=== PATIENT | male | born 1945 | race Caucasian/White ===

== ENCOUNTER 2017-10-01 13:12 | Emergency (ER) | payer OTHER, MEDICARE, BC ==
--- NOTE | 2017-10-01 14:43 | EDM.PDOC ---
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 He had it repaired in [place] and he has been doing well until he got it wet last night while showering. Now it is bleeding a little and he needs it examined and rebandaged. It feels good and he has had no fever or chills. No other complaints. Onset Date: 09/27/17 Onset Time: 13:00 Duration: Day(s): (4 days. 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.) - Related Data Allergies Allergy/AdvReac Type Severity Reaction Status Date / Time codeine Allergy Difficulty Verified 06/08/13 17:08 Breathing Home Meds: Home Meds Aspirin [Halfprin] 81 mg PO DAILY 06/08/13 [History] Lisinopril/Hydrochlorothiazide [Lisinopril-Hctz 10-12.5 mg Tab] 1 each PO DAILY 06/08/13 [History] Metoprolol Tartrate [Lopressor] 50 mg PO DAILY 06/08/13 [History] Simvastatin [Simvastatin] 20 mg PO DAILY 06/08/13 [History] Social & Family History - Tobacco Use Years of Tobacco use: 5 Used Tobacco, but Quit: Yes Month Tobacco Last Used: 1968 Second Hand Smoke Exposure: No ED ROS GENERAL - Review of Systems Review Of Systems: ROS reveals no pertinent complaints other than HPI. ED EXAM, GENERAL - Physical Exam Exam: See Below Exam Limited By: No Limitations General Appearance: Alert Eye Exam: Bilateral Eye: EOMI, Normal Fundi, Normal Inspection Ears: Normal External Exam, Normal Canal, Hearing Grossly Normal, Normal TMs Ear Exam: Bilateral Ear: Auricle Normal, Canal Normal, TM normal Nose: Normal Inspection, Normal Mucosa, No Blood Throat/Mouth: Normal Inspection, Normal Lips, Normal Teeth, Normal Gums, Normal Oropharynx, Normal Voice, No Airway Compromise Head: Atraumatic, Normocephalic Neck: Normal Inspection Respiratory/Chest: No Respiratory Distress, Lungs Clear, Normal Breath Sounds, No Accessory Muscle Use, Chest Non-Tender Cardiovascular: Normal Peripheral Pulses, Regular Rate, Rhythm, No Edema, No Gallop, No JVD, No Murmur, No Rub Extremities: Other (Wound on amputation site of left middle finger is clean and healing well with no warmth or erythema.) Neurological: Alert, Oriented, CN II-XII Intact, Normal Cognition, Normal Gait, Normal Reflexes, No Motor/Sensory Deficits Course - Vital Signs Text/Narrative:: Uneventful ED course. His labs were normal. His finger was redressed and he did well. He will follow up with Dr. Rios and Dr. Tellez as scheduled. - Orders/Labs/Meds Labs: Laboratory Tests 10/01/17 10/01/17 Range/Units 13:45 13:45 WBC 10.2 (4.0-11.0) K/uL RBC 5.00 (4.50-6.50) M/uL Hgb 15.0 (13.0-18.0) g/dL Hct 43.2 (40.0-54.0) % MCV 86 (76-96) fL MCH 30.0 (27.0-32.0) pg MCHC 34.7 (31.0-35.0) g/dL RDW 12.8 (11.0-16.0) % Plt Count 190 (150-400) K/uL MPV 8.9 (6.0-10.0) fL Neut % (Auto) 67.6 (45.0-70.0) % Lymph % (Auto) 21.3 (20.0-40.0) % [place] % (Auto) 8.1 (3.0-10.0) % Eos % (Auto) 2.7 (1.0-5.0) % Baso % (Auto) 0.3 (0.0-0.5) % Neut # (Auto) 6.91 (2.00-7.50) K/uL Lymph # (Auto) 2.18 (1.50-4.00) K/uL [place] # (Auto) 0.83 H (0.20-0.80) K/uL Eos # (Auto) 0.28 (0.04-0.40) K/uL Baso # (Auto) 0.03 (0.02-0.10) K/uL Sodium 139 (136-145) mmol/L Potassium 4.4 (3.5-5.1) mmol/L Chloride 102 (98-107) mmol/L Carbon Dioxide 26.7 (21.0-32.0) mmol/L Anion Gap 14.7 (5.0-15.0) mmol/L BUN 11 (8-26) mg/dL Creatinine 1.18 (0.70-1.30) mg/dL Est Cr Clr Drug Dosing TNP Estimated GFR (MDRD) > 60 (>60) MLS/MIN BUN/Creatinine Ratio 9.3 (6-25) Glucose 97 (74-100) mg/dL Calcium 9.2 (8.5-10.1) mg/dL Total Bilirubin 0.4 D (0.0-1.0) mg/dL AST 22 (15-37) U/L ALT 35 (12-78) U/L Alkaline Phosphatase 128 H (46-116) U/L Total Protein 7.3 (6.4-8.2) g/dL Albumin 4.0 (3.4-5.0) g/dL Globulin 3.3 (2.2-4.2) g/dL Albumin/Globulin Ratio 1.2 (0.8-2.0) Departure - Departure Time of Disposition: 14:44 Disposition: Home, Self-Care 01 Condition: Good Clinical Impression: Visit for wound check - Discharge Information Referrals: PCP,None [Primary Care Provider] -
[2017-10-01 15:03] VITALS: BP 147/82
== END 2017-10-01 14:47 | disposition home or self-care (01) ==
LOC: LB.ED 13:12
DX: S68.113A Complete traumatic metacarpophalangeal amputation of left middle finger, initial encounter (principal); Z87.891 Personal history of nicotine dependence; Z79.82 Long term (current) use of aspirin; Z79.899 Other long term (current) drug therapy; Z88.5 Allergy status to narcotic agent; X58.XXXA Exposure to other specified factors, initial encounter
CPT/HCPCS: 36415; 80053; 85025; 99282; 99284

== ENCOUNTER 2021-02-12 11:59 | Emergency (ER) | payer MEDICARE ==
[2021-02-12] MEDS: Sodium Chloride 0.9% 1,000 ML IV ONE (12:20)
[2021-02-12] MEDS: Acetaminophen 325 MG Tab PO STA (13:00)
[2021-02-12] MEDS: Acetaminophen 325 MG Tab PO ONE (13:04)
[2021-02-12 13:12] VITALS: BP 155/66; PULSE 83
[2021-02-12] MEDS: Sodium Chloride 0.9% 1,000 ML IV SCH (13:20)
--- NOTE | 2021-02-12 14:03 | CR ---
DATE OF SERVICE: 02/12/21 CLINICAL DATA: COUGH,FEVER Portable chest: No priors. Heart size is normal. There is calcification of the aortic arch. There are poorly defined infiltrates in the left mid lung and in the right upper mid lung suspicious for pneumonia. The lungs are otherwise clear. No pneumothorax. No pleural effusions. MTDD
[2021-02-12] MEDS: cefTRIAXone 1 GM Vial ONE (14:34)
[2021-02-12] MEDS: cefTRIAXone 1 GM in Sodium Chloride 0.9% 50 ML IV ONE (14:41)
[2021-02-12] MEDS ORDERED: Sodium Chloride 0.9% 10 ML Syringe FLUSH PRN (15:09)
[2021-02-12] MEDS: Doxycycline 100 MG in Sodium Chloride 0.9% 100 ML IV ONE (15:10)
--- NOTE | 2021-02-12 15:11 | EDM.PDOC ---
ED HPI GENERAL MEDICAL PROBLEM - General Stated Complaint: COVID COMPLICATIONS Time Seen by Provider: 02/12/21 12:30 Source of Information: Reports: Patient, RN History Limitations: Reports: No Limitations - History of Present Illness INITIAL COMMENTS - FREE TEXT/NARRATIVE: 75 year old male with PMH HTN and hyperlipidemia presents to ED after positive covid test. He states he hasn't "felt well" for 3 weeks. He dose have a cough, but that is baseline. +fever. Denies any SOB, CP, n/v/d. - Related Data Allergies Allergy/AdvReac Type Severity Reaction Status Date / Time codeine Allergy Difficulty Verified 06/08/13 17:08 Breathing Home Meds: Home Meds Aspirin [Halfprin] 81 mg PO DAILY 06/08/13 [History] Lisinopril/Hydrochlorothiazide [Lisinopril-Hctz 10-12.5 mg Tab] 1 each PO DAILY 06/08/13 [History] Metoprolol Tartrate [Lopressor] 50 mg PO DAILY 06/08/13 [History] Simvastatin 20 mg PO DAILY 06/08/13 [History] Amoxicillin/Potassium Clav [Augmentin 875-125 Tablet] 1 each PO BID 7 Days #14 tablet 02/12/21 [Rx] Bacillus Coagulans [Probiotic] 1 each PO DAILY #30 capsule. 02/12/21 [Rx] Doxycycline [Vibra-Tabs] 100 mg PO Q12HR 7 Days #14 tab 02/12/21 [Rx] ED ROS GENERAL - Review of Systems Review Of Systems: See Below Constitutional: Reports: Fever, Fatigue HEENT: Reports: No Symptoms Respiratory: Reports: Cough Cardiovascular: Reports: No Symptoms Endocrine: Reports: No Symptoms GI/Abdominal: Reports: No Symptoms : Reports: No Symptoms Musculoskeletal: Reports: No Symptoms Skin: Reports: No Symptoms Neurological: Reports: No Symptoms Psychiatric: Reports: No Symptoms ED EXAM, GENERAL - Physical Exam Exam: See Below Exam Limited By: No Limitations General Appearance: Alert Eye Exam: Bilateral Eye: PERRL Ears: Normal External Exam, Normal Canal, Hearing Grossly Normal, Normal TMs Ear Exam: Bilateral Ear: Auricle Normal, Canal Normal, TM normal Nose: Normal Inspection, Normal Mucosa, No Blood Throat/Mouth: Normal Inspection, Normal Lips, Normal Teeth, Normal Gums, Normal Oropharynx, Normal Voice, No Airway Compromise Head: Atraumatic Neck: Normal Inspection, Non-Tender, Full Range of Motion Respiratory/Chest: No Respiratory Distress, Lungs Clear, Normal Breath Sounds Cardiovascular: Normal Peripheral Pulses, Regular Rate, Rhythm, No Edema, No JVD, No Murmur GI/Abdominal: Normal Bowel Sounds, Soft, Non-Tender Back Exam: Normal Inspection, Full Range of Motion Extremities: Normal Inspection, Normal Range of Motion, Non-Tender, No Pedal Edema, Normal Capillary Refill Neurological: Alert, Oriented, Normal Cognition, Normal Gait, No Motor/Sensory Deficits Psychiatric: Normal Affect, Normal Mood Skin Exam: Warm, Dry, Intact, Normal Color, No Rash Course - Vital Signs Last Recorded V/S: Last Vital Signs Temp 100.4 F 02/12/21 12:10 Pulse 83 02/12/21 12:10 Resp 16 02/12/21 12:10 BP 155/66 H 02/12/21 12:10 Pulse Ox 99 02/12/21 12:10 - Orders/Labs/Meds Labs: Laboratory Tests 02/12/21 02/12/21 02/12/21 Range/Units 13:10 13:30 13:30 WBC 4.6 D (4.0-11.0) K/uL RBC 4.53 (4.50-6.50) M/uL Hgb 13.7 (13.0-18.0) g/dL Hct 39.3 L (40.0-54.0) % MCV 87 (76-96) fL MCH 30.2 (27.0-32.0) pg MCHC 34.9 (31.0-35.0) g/dL RDW 12.7 (11.0-16.0) % Plt Count 146 L D (150-400) K/uL MPV 8.5 (6.0-10.0) fL Neut % (Auto) 67.3 (45.0-70.0) % Lymph % (Auto) 19.0 L (20.0-40.0) % [place] % (Auto) 13.3 H (3.0-10.0) % Eos % (Auto) 0.2 L (1.0-5.0) % Baso % (Auto) 0.2 (0.0-0.5) % Neut # (Auto) 3.08 (2.00-7.50) K/uL Lymph # (Auto) 0.87 L (1.50-4.00) K/uL [place] # (Auto) 0.61 (0.20-0.80) K/uL Eos # (Auto) 0.01 L (0.04-0.40) K/uL Baso # (Auto) 0.01 L (0.02-0.10) K/uL Sodium 132 L (136-145) mmol/L Potassium 3.8 (3.5-5.1) mmol/L Chloride 99 (98-107) mmol/L Carbon Dioxide 29.7 (21.0-32.0) mmol/L Anion Gap 7.1 (5.0-15.0) mmol/L BUN 13 (8-26) mg/dL Creatinine 1.18 (0.70-1.30) mg/dL Est Cr Clr Drug Dosing 59.37 mL/min Estimated GFR (MDRD) > 60 (>60) MLS/MIN BUN/Creatinine Ratio 11.0 (6-25) Glucose 121 H (74-100) mg/dL Calcium 7.6 L (8.5-10.1) mg/dL Total Bilirubin 0.6 (0.0-1.0) mg/dL AST 28 (15-37) U/L ALT 34 (12-78) U/L Alkaline Phosphatase 75 (46-116) U/L Total Protein 6.2 L (6.4-8.2) g/dL Albumin 3.1 L (3.4-5.0) g/dL Globulin 3.1 (2.2-4.2) g/dL Albumin/Globulin Ratio 1.0 (0.8-2.0) Urine Color Yellow Urine Appearance Clear (CLEAR) Urine pH 6.0 (5.0-8.0) Ur Specific [place] 1.025 (1.003-1.030) Urine Protein Negative (NEGATIVE) mg/dL Urine Glucose (UA) Negative (NEGATIVE) mg/dL Urine Ketones Negative (NEGATIVE) mg/dL Urine Occult Blood Negative (NEGATIVE) Urine Nitrite Negative (NEGATIVE) Urine Bilirubin Negative (NEGATIVE) Urine Urobilinogen 0.2 (0.2-1.0) E.U./dL Ur Leukocyte Esterase Negative (NEGATIVE) Meds: Medications Discontinued Medications Generic Name Dose Route Start Last Admin Trade Name Freq PRN Reason Stop Dose Admin Acetaminophen 650 mg 02/12/21 12:46 02/12/21 13:04 Acetaminophen 325 Mg Tab PO 02/12/21 12:47 Not Given NOW ONE Acetaminophen 1,000 mg 02/12/21 12:57 02/12/21 13:00 Acetaminophen 325 Mg Tab PO 02/12/21 12:58 1,000 mg NOW STA Administration Ceftriaxone Sodium Confirm 02/12/21 14:34 02/12/21 14:34 Ceftriaxone 1 Gm Vial Administered 02/12/21 14:35 Not Given Dose 1 gm .ROUTE .STK-MED ONE Sodium Chloride 1,000 mls @ 1,000 mls/hr 02/12/21 12:46 02/12/21 12:20 Normal Saline IV 02/12/21 13:45 1,000 mls/hr .BOLUS ONE Administration Doxycycline Hyclate 100 mg/ 100 mls @ 100 mls/hr 02/12/21 14:06 02/12/21 15:10 Sodium Chloride IV 02/12/21 15:05 100 mls/hr ONETIME ONE Administration Ceftriaxone Sodium 1 gm/ 50 mls @ 200 mls/hr 02/12/21 14:06 02/12/21 14:41 Sodium Chloride IV 02/12/21 14:20 200 mls/hr ONETIME ONE Administration Sodium Chloride 1,000 mls @ 999 mls/hr 02/12/21 14:45 02/12/21 13:20 Normal Saline IV 999 mls/hr ASDIRECTED BRIA Administration Sodium Chloride 10 ml 02/12/21 15:09 Sodium Chloride 0.9% 10 Ml Syringe FLUSH ASDIRECTED PRN Keep Vein Open Departure - Departure Time of Disposition: 16:30 Disposition: Home, Self-Care 01 Condition: Good Clinical Impression: COVID-19 Pneumonia Qualifiers: Pneumonia type: due to unspecified organism Laterality: unspecified laterality Lung location: unspecified part of lung Qualified Code(s): J18.9 - Pneumonia, unspecified organism Fever Qualifiers: Fever type: unspecified Qualified Code(s): R50.9 - Fever, unspecified - Discharge Information *PRESCRIPTION DRUG MONITORING PROGRAM REVIEWED*: Not Applicable *COPY OF PRESCRIPTION DRUG MONITORING REPORT IN PATIENT GURDEEP: Not Applicable Prescriptions: Amoxicillin/Potassium Clav [Augmentin 875-125 Tablet] 1 each PO BID 7 Days #14 tablet Bacillus Coagulans [Probiotic] 1 each PO DAILY #30 capsule. Doxycycline [Vibra-Tabs] 100 mg PO Q12HR 7 Days #14 tab Instructions: COVID-19 Frequently Asked Questions, 10 Things You Can Do to Manage Your COVID-19 Symptoms at Home - CDC, Fever, Adult, [id number], Community-Acquired Pneumonia, Adult, [id number] Referrals: PCP,None [Primary Care Provider] - Forms: ED Department Discharge Additional Instructions: Start taking both antibiotics today (only one dose of both) and the probiotic. Drink plenty of fluids. Tylenol 650 mg and/or ibuprofen 600mg every 6 hours as needed for fever. Quarantine as advised by [place] [facility]. Return to ED for any increased or new concerning symptoms. Follow up with PMD as needed. Sepsis Event Note (ED) - Evaluation Sepsis Screening Result: No Definite Risk
== END 2021-02-12 16:30 | disposition home or self-care (01) ==
LOC: LB.ED 11:59
DX: U07.1 COVID-19 (principal); J12.82 Pneumonia due to coronavirus disease 2019; I10 Essential (primary) hypertension; E78.5 Hyperlipidemia, unspecified; Z79.82 Long term (current) use of aspirin; Z79.899 Other long term (current) drug therapy; Z88.5 Allergy status to narcotic agent
CPT/HCPCS: 36415; 71045; 80053; 81003; 85025; 96365; 96367; 99284; A9270; J0696; J3490; J7030

== ENCOUNTER 2021-02-15 10:25 | Emergency (ER) | payer MEDICARE ==
[~2021-02-15 10:25] MED LIST: REMDESIVIR 200 MG in Sodium Chloride 0.9% 250 ML IV SCH
[2021-02-15] MEDS ORDERED: Acetaminophen 325 MG Tab PO ONE (11:35)
[2021-02-15] MEDS ORDERED: Sodium Chloride 0.9% 10 ML Syringe FLUSH PRN (11:35)
[2021-02-15] MEDS ORDERED: Ondansetron 4 MG/2 ML SDV IVPUSH ONE (11:43)
[2021-02-15] MEDS ORDERED: Sodium Chloride 0.9% 1,000 ML IV SCH (11:45)
[2021-02-15] MEDS ORDERED: Ondansetron 4 MG/2 ML SDV ONE (11:45)
[2021-02-15] MEDS ORDERED: Dexamethasone 4 MG Tab PO ONE (11:57)
[2021-02-15] MEDS ORDERED: REMDESIVIR 200 MG in Sodium Chloride 0.9% 250 ML IV ONE (11:57)
[2021-02-15] MEDS ORDERED: Azithromycin 500 MG in Sodium Chloride 0.9% 250 ML IV ONE (12:57)
[2021-02-15] MEDS ORDERED: cefTRIAXone 2 GM in Sodium Chloride 0.9% 100 ML IV ONE (12:57)
--- NOTE | 2021-02-15 13:36 | EDM.PDOC ---
ED HPI GENERAL MEDICAL PROBLEM - General Chief Complaint: Respiratory Problem Stated Complaint: COVID/ PNEUMONIA Time Seen by Provider: 02/15/21 11:05 Source of Information: Reports: Patient History Limitations: Reports: No Limitations - History of Present Illness INITIAL COMMENTS - FREE TEXT/NARRATIVE: 75 year old male with PMH HTN, COVID +, presents to ER with increased lethargy, decreased appetite, increased nausea, and increased RR. EMS states that patient RA sats were 87-89, increased with 3L NC O2 to 95%. Patient denies SOB, CP, V/D, absominal pain, urinary issues. He does continue to have a fever and nausea. He has not eaten any thing since Monday night. Treatments [place]: Reports: Acetaminophen, NSAIDS - Related Data Allergies Allergy/AdvReac Type Severity Reaction Status Date / Time codeine Allergy Difficulty Verified 06/08/13 17:08 Breathing Home Meds: Home Meds Aspirin [Halfprin] 81 mg PO DAILY 06/08/13 [History] Lisinopril/Hydrochlorothiazide [Lisinopril-Hctz 10-12.5 mg Tab] 1 each PO DAILY 06/08/13 [History] Metoprolol Tartrate [Lopressor] 50 mg PO DAILY 06/08/13 [History] Simvastatin 20 mg PO DAILY 06/08/13 [History] Past Medical History HEENT History: Reports: Hard of Hearing Cardiovascular History: Reports: Hypertension Other Respiratory History: COVID 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 Pt states minimal Social & Family History - Tobacco Use Tobacco Use Status *Q: Never Tobacco User - Caffeine Use Caffeine Use: Reports: Coffee ED ROS GENERAL - Review of Systems Review Of Systems: See Below Constitutional: Reports: Fever, Chills, Weakness, Decreased Appetite HEENT: Reports: No Symptoms Respiratory: Reports: Cough Cardiovascular: Reports: No Symptoms GI/Abdominal: Reports: Nausea : Reports: No Symptoms Musculoskeletal: Reports: No Symptoms Skin: Reports: No Symptoms Neurological: Reports: Other (at baseline) Psychiatric: Reports: No Symptoms Hematologic/Lymphatic: Reports: No Symptoms Immunologic: Reports: No Symptoms ED EXAM, GENERAL - Physical Exam Exam: See Below Exam Limited By: No Limitations General Appearance: Alert, No Apparent Distress Eye Exam: Bilateral Eye: Normal Inspection, PERRL Ears: Normal External Exam, Hearing Grossly Normal Ear Exam: Bilateral Ear: Auricle Normal Nose: Normal Inspection, Normal Mucosa, No Blood Throat/Mouth: Normal Inspection, Normal Lips, Normal Teeth, Normal Gums, Normal Oropharynx, Normal Voice, No Airway Compromise Head: Atraumatic Neck: Normal Inspection, Non-Tender, Full Range of Motion Respiratory/Chest: No Respiratory Distress, No Accessory Muscle Use, Decreased Breath Sounds Cardiovascular: Normal Peripheral Pulses, No Edema, No JVD, No Murmur, Tachycardia Peripheral Pulses: 3+: Radial (L), Radial (R), Dorsalis Pedis (L), Dorsalis Pedis (R) GI/Abdominal: Normal Bowel Sounds, Soft, Non-Tender Back Exam: Normal Inspection, Full Range of Motion Extremities: Normal Inspection, Normal Range of Motion, Non-Tender, No Pedal Edema, Normal Capillary Refill Neurological: Alert, Oriented, Normal Cognition, No Motor/Sensory Deficits Psychiatric: Normal Affect, Normal Mood Skin Exam: Warm, Dry, Intact, Normal Color, No Rash Course - Vital Signs Last Recorded V/S: Last Vital Signs Temp 101.5 F H 02/15/21 11:53 Pulse 83 02/15/21 12:31 Resp 32 H 02/15/21 12:31 BP 111/61 02/15/21 13:55 Pulse Ox 93 L 02/15/21 13:55 - Orders/Labs/Meds Orders: Active Orders 24 hr Category Date Time Status Chest 1V Frontal [CR] Stat Exams 02/15/21 11:44 Taken Chest w Cont [CT] Stat Exams 02/15/21 13:41 Taken CULTURE BLOOD [BC] Stat Lab 02/15/21 11:30 Received Peripheral IV Insertion Adult [OM.PC] Routine Oth 02/15/21 11:35 Ordered Labs: Laboratory Tests 02/15/21 02/15/21 02/15/21 Range/Units 11:30 11:30 11:30 WBC 6.3 D (4.0-11.0) K/uL RBC 4.77 (4.50-6.50) M/uL Hgb 14.3 (13.0-18.0) g/dL Hct 40.4 (40.0-54.0) % MCV 85 (76-96) fL MCH 30.0 (27.0-32.0) pg MCHC 35.4 H (31.0-35.0) g/dL RDW 12.8 (11.0-16.0) % Plt Count 175 (150-400) K/uL MPV 8.8 (6.0-10.0) fL Neut % (Auto) 86.0 H (45.0-70.0) % Lymph % (Auto) 8.9 L (20.0-40.0) % [place] % (Auto) 4.9 (3.0-10.0) % Eos % (Auto) 0.0 L (1.0-5.0) % Baso % (Auto) 0.2 (0.0-0.5) % Neut # (Auto) 5.42 (2.00-7.50) K/uL Lymph # (Auto) 0.56 L (1.50-4.00) K/uL [place] # (Auto) 0.31 (0.20-0.80) K/uL Eos # (Auto) 0.00 L (0.04-0.40) K/uL Baso # (Auto) 0.01 L (0.02-0.10) K/uL D-Dimer, Quantitative 1360 H (0-400) ng/mL Sodium 132 L (136-145) mmol/L Potassium 3.8 (3.5-5.1) mmol/L Chloride 96 L (98-107) mmol/L Carbon Dioxide 24.8 (21.0-32.0) mmol/L Anion Gap 15.0 (5.0-15.0) mmol/L BUN 18 D (8-26) mg/dL Creatinine 1.17 (0.70-1.30) mg/dL Est Cr Clr Drug Dosing TNP Estimated GFR (MDRD) > 60 (>60) MLS/MIN BUN/Creatinine Ratio 15.4 (6-25) Glucose 118 H (74-100) mg/dL Calcium 7.8 L (8.5-10.1) mg/dL Total Bilirubin 0.8 D (0.0-1.0) mg/dL AST 60 H (15-37) U/L ALT 43 (12-78) U/L Alkaline Phosphatase 66 (46-116) U/L Total Protein 6.2 L (6.4-8.2) g/dL Albumin 2.6 L (3.4-5.0) g/dL Globulin 3.6 (2.2-4.2) g/dL Albumin/Globulin Ratio 0.7 L (0.8-2.0) Meds: Medications Discontinued Medications Generic Name Dose Route Start Last Admin Trade Name Freq PRN Reason Stop Dose Admin Acetaminophen 1,000 mg 02/15/21 11:35 02/15/21 11:45 Acetaminophen 325 Mg Tab PO 02/15/21 11:36 1,000 mg NOW ONE Administration Dexamethasone 6 mg 02/15/21 11:57 02/15/21 12:10 Dexamethasone 4 Mg Tab PO 02/15/21 11:58 6 mg ONETIME ONE Administration Sodium Chloride 1,000 mls @ 1,000 mls/hr 02/15/21 11:45 Normal Saline IV ASDIRECTED BRIA Remdesivir 200 mg/ Sodium 250 mls @ 250 mls/hr 02/15/21 11:57 Chloride IV 02/15/21 11:58 ONETIME ONE Remdesivir 200 mg/ Sodium 250 mls @ 250 mls/hr 02/15/21 08:00 02/15/21 12:27 Chloride IV 02/15/21 23:59 250 mls/hr DAILY BRIA Administration Azithromycin 500 mg/ Sodium 250 mls @ 250 mls/hr 02/15/21 12:57 02/15/21 13:00 Chloride IV 02/15/21 13:56 250 mls/hr ONETIME ONE Administration Ceftriaxone Sodium 2 gm/ 100 mls @ 100 mls/hr 02/15/21 12:57 02/15/21 13:00 Sodium Chloride IV 02/15/21 13:56 100 mls/hr ONETIME ONE Administration Ondansetron HCl 4 mg 02/15/21 11:43 02/15/21 11:45 Ondansetron 4 Mg/2 Ml Sdv IVPUSH 02/15/21 11:44 4 mg ONETIME ONE Administration Ondansetron HCl Confirm 02/15/21 11:45 Ondansetron 4 Mg/2 Ml Sdv Administered 02/15/21 11:46 Dose 4 mg .ROUTE .STK-MED ONE Sodium Chloride 10 ml 02/15/21 11:35 Sodium Chloride 0.9% 10 Ml Syringe FLUSH ASDIRECTED PRN Keep Vein Open Departure - Departure Time of Disposition: 14:51 Disposition: DC/[facility]fer to [facility] 02 Clinical Impression: COVID-19 Fever Qualifiers: Fever type: unspecified Qualified Code(s): R50.9 - Fever, unspecified Pneumonia Qualifiers: Pneumonia type: due to unspecified organism Laterality: unspecified laterality Lung location: unspecified part of lung Qualified Code(s): J18.9 - Pneumonia, unspecified organism - Discharge Information *PRESCRIPTION DRUG MONITORING PROGRAM REVIEWED*: Not Applicable *COPY OF PRESCRIPTION DRUG MONITORING REPORT IN PATIENT GURDEEP: Not Applicable Referrals: PCP,None [Primary Care Provider] - Forms: ED Department Discharge Sepsis Event Note (ED) - Evaluation Sepsis Screening Result: Possible Sepsis Risk - Focused Exam Vital Signs: Vital Signs Temp Pulse Resp BP Pulse Ox 02/15/21 13:55 111/61 93 L 02/15/21 12:31 83 32 H 90/55 L 93 L 02/15/21 11:53 101.5 F H 103 H 36 H 102/64 91 L - My Orders Last 24 Hours: My Active Orders 02/15/21 11:30 CULTURE BLOOD [BC] Stat 02/15/21 11:35 Peripheral IV Insertion Adult [OM.PC] Routine 02/15/21 11:44 Chest 1V Frontal [CR] Stat 02/15/21 13:41 Chest w Cont [CT] Stat - Assessment/Plan Last 24 Hours: My Active Orders 02/15/21 11:30 CULTURE BLOOD [BC] Stat 02/15/21 11:35 Peripheral IV Insertion Adult [OM.PC] Routine 02/15/21 11:44 Chest 1V Frontal [CR] Stat 02/15/21 13:41 Chest w Cont [CT] Stat Plan: 1105 patient arrives via EMS with fever and decreased RA sats. Patient is awake and alert, but sleepy. States he last took tylenol earlier this AM. Denies being SOB and having a cough in spite of decreased breath sounds bilaterally and decreased RA sats. 1145 Johnnie the pharm consulted and is mixing the remdesivir 200 mg 1st dose and 6 mg PO dexamethasone. He is aware that the patient is going to be transfered. 1245 Patient continues to have resp of 32, sats are 94 on 3L NC. Called [place], Dr Siddiqi is accepting and requests a DDimer done and to call him back with results. 1345 Patient is resting, aware of pending transfer, DDimer was positive, Dr. Siddiqi updated, PE CT ordered. [address] negative, Dr. Siddiqi aware, patient's O2 increased to 4L NC, patient will go to [facility] ICU. Family is aware of the plan and verbalized understanding , all questions were answered prior to Transport.
[2021-02-15 13:51] VITALS: PULSE 83
[2021-02-15 13:55] VITALS: BP 111/61
[2021-02-15] MEDS ORDERED: Sodium Chloride 0.9% 50 ML SDV FLUSH ONE (16:10)
[2021-02-15] MEDS ORDERED: Iopamidol 612 MG/ML 100 ML Bottle IV SCH (16:15)
--- NOTE | 2021-02-15 18:17 | CR ---
DATE OF SERVICE: 02/15/2021 CLINICAL DATA: Decreased sats. AP CHEST: Comparison is made to a prior exam dated 02/12/2021. The heart size is stable. There are extensive bilateral infiltrates with consolidation with marked progression from the prior study. No pneumothorax. No pleural effusions. [id number] [facility]
--- NOTE | 2021-02-15 18:24 | CT ---
DATE OF SERVICE: 02/15/2021 CLINICAL DATA: Elevated D-dimer. ENHANCED CHEST CT: Multislice acquisition through chest with IV contrast was performed. No priors. No evidence of PE. No pneumothorax. There are small bilateral pleural effusions. No aortic aneurysm or dissection. There are extensive ground glass infiltrates scattered throughout both lungs with areas of consolidation bilaterally consistent with multifocal pneumonia. The findings are consistent with the patient's history of positive COVID pneumonia. The heart size is normal. No pericardial effusion. No hilar or mediastinal adenopathy. There is mild diffuse fatty infiltration of the liver. No other significant findings. IMPRESSION: Abnormal exam. See above. [id number] [facility]
== END 2021-02-15 14:55 ==
LOC: LB.ED 10:25
DX: U07.1 COVID-19 (principal); J12.82 Pneumonia due to coronavirus disease 2019; I10 Essential (primary) hypertension; Z88.5 Allergy status to narcotic agent; Z79.82 Long term (current) use of aspirin; Z79.899 Other long term (current) drug therapy
CPT/HCPCS: 36415; 71045; 71260; 80053; 85025; 85379; 87040; 96365; 96368; 96375; 99285-25; A9270-GY; J0456; J0696; J2405; J7050; J8540; Q9967

== ENCOUNTER 2023-03-09 09:26 | Day surgery (SDC) | payer MEDICARE ==
[~2023-03-09 09:26] MED LIST changes: +Acetaminophen/HYDROcodone 325-5 MG Tab PO PRN; +Lactated Ringers 1,000 ML IV SCH; +Ondansetron 4 MG/2 ML SDV IVPUSH PRN; -REMDESIVIR 200 MG in Sodium Chloride 0.9% 250 ML IV SCH; +ceFAZolin 2 GM in Sodium Chloride 0.9% 100 ML IV ONE
[2023-03-09] MEDS ORDERED: Midazolam 1 MG/ML 2 ML SDV ONE (13:00)
[2023-03-09] MEDS ORDERED: Propofol 200 MG/20 ML SDV ONE (13:00)
[2023-03-09 14:23] VITALS: BP 119/63; PULSE 66
[2023-03-09] MEDS: Morphine 2 MG/ML SYRINGE IVPUSH PRN ×2 (14:30→15:20)
[2023-03-09] MEDS ORDERED: HYDROmorphone 2 MG/ML Syringe IVPUSH ONE (16:44)
== END 2023-03-09 17:36 | disposition home or self-care (01) ==
LOC: LB.SDS 09:26
PROVIDERS: ATTEND Surgery
DX: K42.9 Umbilical hernia without obstruction or gangrene (principal); I10 Essential (primary) hypertension; M19.90 Unspecified osteoarthritis, unspecified site; K21.9 Gastro-esophageal reflux disease without esophagitis; Z87.891 Personal history of nicotine dependence; Z79.899 Other long term (current) drug therapy; Z88.5 Allergy status to narcotic agent
CPT/HCPCS: A9270-GY; J0690; J1170; J2250; J2270; J2405; J2704; J3490; J7120